=== PATIENT | female | born 1955 | race Caucasian/White ===

== ENCOUNTER 2022-01-13 15:43 | Emergency (ER) | payer OTHER ==
[~2022-01-13] VITALS: Ht 162.6 cm; Wt 99.8 kg
[~2022-01-13 15:43] MED LIST: ACET325 PO; CYCL10 PO; DIPH50 PO; LEVSOD150 PO; NAPR500 PO; ONDA4ODT SL
[2022-01-13] MEDS ORDERED: TIZANIDINE HCL211 PO (16:01)
[2022-01-13] MEDS ORDERED: Ventolin/Prove6.7 GM INH (16:01)
[2022-01-13 16:30] LABS: BASOPHILS ABSOLUTE AUTO 0.02 K/mm3 (0.00-0.23); BASOPHILS PERCENT AUTO 0 % (0-2); EOSINOPHILS ABSOLUTE AUTO 0.06 K/mm3 (0.00-0.68); EOSINOPHILS PERCENT AUTO 1 % (0-6); Hematocrit 48.2 % (33.0-51.0); Hemoglobin 16.3 g/dL (11.5-16.0); IMMATURE GRAN ABSOLUTE AUTO 0.05 K/mm3 (0.00-0.10); IMMATURE GRAN PERCENT AUTO 1 % (0-1); LYMPHOCYTES ABSOLUTE AUTO 2.73 K/mm3 (0.84-5.20); LYMPHOCYTES PERCENT AUTO 36 % (21-46); MONOCYTES ABSOLUTE AUTO 0.61 K/mm3 (0.16-1.47); MONOCYTES PERCENT AUTO 8 % (4-13); Mean Corpuscular HGB Conc 33.8 g/dL (31.5-36.5); Mean Corpuscular Volume 92 fL (80-100); Mean Platelet Volume 9.8 fL (9.1-12.4); NEUTROPHILS ABSOLUTE AUTO 4.23 K/mm3 (1.96-9.15); NEUTROPHILS PERCENT AUTO 55 % (41-73); Platelet Count 378 K/mm3 (150-400); RDW Coefficient Variation 14.2 % (11.7-14.2); RDW Standard Deviation 47.9 fL (35.1-46.3); Red Blood Cell Count 5.25 M/mm3 (3.80-5.20)
[2022-01-13 16:32] LABS: Alanine Aminotransfer (ALT/SGP 37 U/L (12-78); Albumin, Blood 3.8 g/dL (3.4-5.0); Albumin/Globulin Ratio 1.2 (0.8-1.8); Alk Phos 74 U/L (50-136); Anion Gap 5 mmol/L (6-16); Aspartate Aminotrans (AST/SGOT 37 U/L (12-37); Bilirubin, Total 0.9 mg/dL (0.1-1.0); Blood Urea Nitrogen 16 mg/dL (8-24); Bun/Creatinine Ratio 27.5 (12.0-20.0); CO2, Blood 27 mmol/L (21-32); Calcium, Blood 9.3 mg/dL (8.5-10.1); Chloride, Blood 110 mmol/L (98-108); Creatinine, Blood 0.58 mg/dL (0.40-1.00); Globulin, Blood 3.2 g/dL (2.2-4.0); Glomerular Filtration Rate >60 (60-); Glucose, Blood 133 mg/dL (70-99); Potassium, Blood 4.2 mmol/L (3.5-5.5); Sodium, Blood 142 mmol/L (136-145)
[2022-01-13] MEDS ORDERED: Pepcid40 MG PO (18:56)
== END 2022-01-13 19:06 | disposition home or self-care (01) ==
LOC: ER 15:43
PROVIDERS: Emergency Medicine
DX: R07.9 Chest pain, unspecified (principal); Z88.8 Allergy status to other drugs, medicaments and biological substances; Z88.0 Allergy status to penicillin; Z88.6 Allergy status to analgesic agent; Z91.018 Allergy to other foods; Z79.899 Other long term (current) drug therapy; J44.9 Chronic obstructive pulmonary disease, unspecified; F17.200 Nicotine dependence, unspecified, uncomplicated
CPT/HCPCS: 71045; 80053; 84484; 85025; 93005; 93010; 96374; 96376; 99285-25; A9270; J2405

== ENCOUNTER 2024-04-20 08:39 | Day surgery (SDC) | payer OTHER ==
[~2024-04-20] VITALS: Ht 162.6 cm; Wt 96.3 kg
[~2024-04-20 08:39] MED LIST changes: +Balanced Salt Epinephrine Irrigation Solution 500 mL IR SCH; +Lidocaine HCl/Pf 1% 5 ML VIAL XX SCH; +Moxifloxacin HCL 0.5 MG/0.1 ML 0.4MLSYR RIGHTEYE SCH; +NS 500 ML IV ONE; +PHENYLEPHRINE\\TROPICAMIDE\\TETRACAINE OPHTHALMIC DILATING SOLN RIGHTEYE PRN; +Pepcid40 MG PO; +Povidone-Iodine 450 DROP/30 ML Solution RIGHTEYE SCH; +TIZANIDINE HCL211 PO; +Ventolin/Prove6.7 GM INH
[2024-04-20] MEDS ORDERED: FentaNYL Citrate 50 MCG/ML 2 ML Injection ONE (08:53)
[2024-04-20] MEDS ORDERED: Midazolam HCl 1MG / ML 2ML Vial ONE (08:53)
[2024-04-20] MEDS ORDERED: LEVOTHYROXINE112 M18 PO (09:09)
[2024-04-20] MEDS ORDERED: Cyclobenzaprine5 MG (09:10)
[2024-04-20] MEDS ORDERED: FAMO40 PO (09:11)
[2024-04-20] MEDS ORDERED: [UNRECOGNIZED DRUG - OTHER] (09:12)
[2024-04-20] MEDS ORDERED: GUAIFENSIN (09:12)
[2024-04-20] MEDS ORDERED: NS 500 ML IV ONE (09:20)
[2024-04-20 10:21] VITALS: BP 135/77
== END 2024-04-20 10:34 | disposition home or self-care (01) ==
LOC: ORSCSDS 08:39
PROVIDERS: Student in an Organized Health Care Education/Training Program
PROC: 08RJ3JZ Replacement of Right Lens with Synthetic Substitute, Percutaneous Approach (ICD-10-PCS; principal; 2024-04-20 10:00)
DX: H25.813 Combined forms of age-related cataract, bilateral (principal); K21.9 Gastro-esophageal reflux disease without esophagitis; I10 Essential (primary) hypertension; J44.9 Chronic obstructive pulmonary disease, unspecified; F17.210 Nicotine dependence, cigarettes, uncomplicated; Z79.899 Other long term (current) drug therapy
CPT/HCPCS: 82947; J2250; J3010; J7040; V2632

== ENCOUNTER 2024-05-04 09:01 | Day surgery (SDC) | payer OTHER ==
[~2024-05-04] VITALS: Ht 162.6 cm; Wt 96.5 kg
[~2024-05-04 09:01] MED LIST changes: +Cyclobenzaprine5 MG; +FAMO40 PO; +GUAIFENSIN; +LEVOTHYROXINE112 M18 PO; +Moxifloxacin HCL 0.5 MG/0.1 ML 0.4MLSYR LEFTEYE SCH; -Moxifloxacin HCL 0.5 MG/0.1 ML 0.4MLSYR RIGHTEYE SCH; +PHENYLEPHRINE\\TROPICAMIDE\\TETRACAINE OPHTHALMIC DILATING SOLN LEFTEYE PRN; -PHENYLEPHRINE\\TROPICAMIDE\\TETRACAINE OPHTHALMIC DILATING SOLN RIGHTEYE PRN; +Povidone-Iodine 450 DROP/30 ML Solution LEFTEYE SCH; -Povidone-Iodine 450 DROP/30 ML Solution RIGHTEYE SCH; +[UNRECOGNIZED DRUG - OTHER]
--- NOTE | 2024-05-04 09:27 | NUR ---
05/04/24 0927 Maira Jimenez AT 0921 PLEDGET AT 0923
[2024-05-04] MEDS ORDERED: NS 500 ML IV ONE (09:29)
[2024-05-04] MEDS ORDERED: Midazolam HCl 1MG / ML 2ML Vial ONE (10:00)
[2024-05-04 11:03] VITALS: BP 128/62
== END 2024-05-04 10:35 | disposition home or self-care (01) ==
LOC: ORSCSDS 09:01
PROVIDERS: Student in an Organized Health Care Education/Training Program
PROC: 08RK3JZ Replacement of Left Lens with Synthetic Substitute, Percutaneous Approach (ICD-10-PCS; principal; 2024-05-04 10:00)
DX: H25.812 Combined forms of age-related cataract, left eye (principal); J44.9 Chronic obstructive pulmonary disease, unspecified; Z96.1 Presence of intraocular lens; I10 Essential (primary) hypertension; E07.9 Disorder of thyroid, unspecified; J43.9 Emphysema, unspecified; E66.9 Obesity, unspecified; Z68.36 Body mass index [BMI] 36.0-36.9, adult; F17.210 Nicotine dependence, cigarettes, uncomplicated; Z79.899 Other long term (current) drug therapy
CPT/HCPCS: 82947; J2250; J7040; V2632

== ENCOUNTER 2024-07-29 09:34 | Day surgery (SDC) | payer OTHER ==
[~2024-07-29] VITALS: Ht 162.6 cm; Wt 99.8 kg
[~2024-07-29 09:34] MED LIST changes: -Balanced Salt Epinephrine Irrigation Solution 500 mL IR SCH; +Lactated Ringer's 1,000 ML IV ONE; -Lidocaine HCl/Pf 1% 5 ML VIAL XX SCH; -Moxifloxacin HCL 0.5 MG/0.1 ML 0.4MLSYR LEFTEYE SCH; -NS 500 ML IV ONE; -PHENYLEPHRINE\\TROPICAMIDE\\TETRACAINE OPHTHALMIC DILATING SOLN LEFTEYE PRN; -Povidone-Iodine 450 DROP/30 ML Solution LEFTEYE SCH
[2024-07-29] MEDS ORDERED: Vitamin B-12100 MCG PO (10:07)
[2024-07-29] MEDS ORDERED: ASCO500 PO (10:07)
[2024-07-29] MEDS ORDERED: propofoL 20 ML IV ONE ×2 (10:28→10:44)
--- NOTE | 2024-07-29 10:31 | NUR ---
07/29/[address] INJECTED 7MLS OF LOCAL SOLUTION INTO L HAND. TIME OUT COMPLETED BEFORE INJECTION.
[2024-07-29 11:05] VITALS: BP 121/69
== END 2024-07-29 11:25 | disposition home or self-care (01) ==
LOC: ORSCSDS 09:34
PROVIDERS: Orthopaedic Surgery
PROC: 0LN80ZZ Release Left Hand Tendon, Open Approach (ICD-10-PCS; principal; 2024-07-29 11:15)
DX: M65.342 Trigger finger, left ring finger (principal); M65.332 Trigger finger, left middle finger; J44.9 Chronic obstructive pulmonary disease, unspecified; E66.9 Obesity, unspecified; Z68.37 Body mass index [BMI] 37.0-37.9, adult; F17.210 Nicotine dependence, cigarettes, uncomplicated; I10 Essential (primary) hypertension; Z79.899 Other long term (current) drug therapy
CPT/HCPCS: J2704; J7120